=== PATIENT | female | born 1995 | race Caucasian/White ===

== ENCOUNTER 2016-08-28 18:13 | Inpatient (IN) | payer MEDICAID ==
[~2016-08-28] VITALS: Ht 149.9 cm; Wt 63.6 kg
[2016-08-28] MEDS ORDERED: ALBUTEROL/IPRATROPIUM 2.5MG/0.5MG, 3 ML ONE ×2 (18:29→19:49)
[2016-08-28] MEDS ORDERED: LORazepam 2 MG/ML, 1ML IVP ONE (18:30)
[2016-08-28] MEDS: ALBUTEROL/IPRATROPIUM 2.5MG/0.5MG, 3 ML NPPB SCH ×2 (18:56→20:52)
[2016-08-28] MEDS ORDERED: ONDANSETRON ODT 4 MG ONE (19:20)
[2016-08-28] MEDS ORDERED: PROMETHAZINE/COD. 10MG/6.25MG/5 ML ORAL SOL PO ONE (19:30)
[2016-08-28] MEDS ORDERED: SODIUM CHLORIDE FLUSH 10ML SYR IVF ONE (19:30)
[2016-08-28] MEDS ORDERED: ONDANSETRON ODT 4 MG PO ONE (19:30)
[2016-08-28] MEDS ORDERED: ALBUTEROL/IPRATROPIUM 2.5MG/0.5MG, 3 ML NPPB ONE (19:30)
[2016-08-28] MEDS ORDERED: MAGNESIUM SULFATE PMX 2GM/50ML 50 ML IVPB ONE (20:00)
[2016-08-28 20:38] LABS: BLOOD UREA NITROGEN 10 mg/dL (7-18)
[2016-08-28] MEDS ORDERED: ALBUTEROL SULFATE 2.5 MG/3 ML ONE (20:50)
[2016-08-28] MEDS ORDERED: MONT10TA6 PO (21:11)
[2016-08-28] MEDS: HEPARIN 5,000 UNITS/ML, 1ML SQ SCH (22:00)
[2016-08-28] MEDS ORDERED: ONDANSETRON 2MG/ML, 2ML IVP PRN (22:00)
[2016-08-28] MEDS ORDERED: BISACODYL 10 MG SUPP PR PRN (22:00)
[2016-08-28] MEDS ORDERED: ACETAMINOPHEN 325 MG TABLET PO PRN (22:00)
[2016-08-28] MEDS ORDERED: POLYETHYLENE GLYCOL 17 GM PACKET PO PRN (22:00)
[2016-08-28] MEDS: SODIUM CHLORIDE FLUSH 10ML SYR IVF SCH (22:00)
[2016-08-28 22:19] VITALS: BP 129/82
[2016-08-28] MEDS ORDERED: ALBUTEROL/IPRATROPIUM 2.5MG/0.5MG, 3 ML NPPB PRN (23:00)
[2016-08-29 01:47] VITALS: BP 130/86
[2016-08-29] MEDS: ALBUTEROL/IPRATROPIUM 2.5MG/0.5MG, 3 ML NPPB SCH ×2 (05:36→06:34)
[2016-08-29] MEDS: HEPARIN 5,000 UNITS/ML, 1ML SQ SCH (06:00)
[2016-08-29 07:01] VITALS: BP 117/74
[2016-08-29] MEDS ORDERED: MONTELUKAST 10 MG TABLET PO SCH (09:00)
[2016-08-29] MEDS ORDERED: SENNA/DOCUSATE TABLET PO SCH (09:00)
[2016-08-29] MEDS: SODIUM CHLORIDE FLUSH 10ML SYR IVF SCH (09:29)
[2016-08-29 11:21] VITALS: BP 120/60
[2016-08-29] MEDS ORDERED: FLUTICASONE/VILANTEROL 200-25MCG/INH INH SCH (11:30)
[2016-08-29] MEDS ORDERED: PRED10TA PO (11:46)
[2016-08-29] MEDS ORDERED: FLUT1BLS INH (11:46)
[2016-08-29] MEDS ORDERED: PNEUMOCOCCAL 23 VACCINE IM-VACC ONE (13:30)
== END 2016-08-29 14:35 | disposition home or self-care (01) | DRG 202 ==
LOC: ED 21:23 → EDIP 21:27 → 3NE 22:01 → DCLOUNGE 08-29 14:30
PROVIDERS: ADMIT Internal Medicine; ATTEND Internal Medicine
DX: J45.42 Moderate persistent asthma with status asthmaticus (principal); R65.10 Systemic inflammatory response syndrome (SIRS) of non-infectious origin without acute organ dysfunction; Z79.899 Other long term (current) drug therapy; Z23 Encounter for immunization
CPT/HCPCS: 36415; 71020; 80048; 82040; 85025; 90732; 94640; 96365; 96366; 99291; J7620; Q0162; J3475; J7512